=== PATIENT | male | born 1960 | race Caucasian/White ===

== ENCOUNTER 2016-09-05 11:08 | Emergency (ER) | payer BC ==
[2016-09-05 11:29] VITALS: BP 172/102
[2016-09-05] MEDS ORDERED: Sodium Chloride 0.9% 1,000 ML IV ONE (11:43)
[2016-09-05] MEDS ORDERED: Metoclopramide 10 MG/2 ML SDV IVPUSH ONE (11:43)
[2016-09-05] MEDS ORDERED: HYDROmorphone 1 MG/ML Syringe IVPUSH ONE (11:44)
--- NOTE | 2016-09-05 11:46 | EDM.PDOC ---
ED HPI GI/ABDOMINAL - General Chief Complaint: Abdominal Pain Stated Complaint: SEVERE STOMACH PAIN Time Seen by Provider: 09/05/16 11:46 Source of Information: Reports: Patient History Limitations: Reports: No limitations - History of Present Illness INITIAL COMMENTS - FREE TEXT/NARRATIVE: 55-year-old male presents the ED with diffuse central abdominal pain. Reports that it's constant without colicky component does not radiate through to his back. He awoke this pain 0500 hours this morning and it has continued and in fact is worse now than it was upon its origin. He associated nausea but has not vomited. He did have a normal bowel movement this morning without blood. Doesn' t believe that he is passing any flatus since that time. He's had no previous abdominal surgery. States his abdomen feels mildly bloated. Pain is rated as 9/ 10. He does not drink alcohol.. takes no medications at this time. Symptom Onset Date: 09/05/16 Symptom Onset Time: 05:00 Timing/Duration: Reports: Hour(s):, Sudden onset Location: periumbilical Quality: Reports: ache, cramping, fullness Improves with: Denies: defecating (Deep aching pain) Worsens with: Denies: defecating Context: Denies: sick contact, bad/questionable food, out of country travel, recent surgery, recent trauma, lifting, activity/exercise, other Associated Symptoms: Reports: denies other symptoms, loss of appetite, malaise, nausea/vomiting. Denies: back pain, testicular pain, groin pain, shoulder pain , constipation, diarrhea, bloody stools, fever/chills, other (Nausea but not able to vomit.) Treatments CONTRACT NEGOTIATOR: Reports: Other (see below) (No) - Related Data Allergies/ADRs: Allergies Allergy/AdvReac Type Severity Reaction Status Date / Time No Known Allergies Allergy Verified 09/05/16 11:24 Past Medical History - Past Surgical History Musculoskeletal Surgical History: Reports: Other (see below) Other Musculoskeletal Surgeries/Procedures:: low back surgery Social & Family History - Tobacco Use Smoking Status *Q: Never Smoker - Caffeine Use Caffeine Use: Reports: Coffee - Recreational Drug Use Recreational Drug Use: No - Living Situation & Occupation Living situation: Reports: 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 Denies: fever, chills HEENT: Reports: No symptoms Respiratory: Reports: No Symptoms Cardiovascular: Reports: No symptoms Endocrine: Reports: no symptoms GI/Abdominal: Reports: Abdominal pain, Anorexia (See history of present illness) , Nausea. Denies: Diarrhea, Flatus, Vomiting : Reports: no symptoms (Not passing flatus) Musculoskeletal: Reports: back pain (Mild chronic low back pain much better since discectomy was performed within the last year.) Skin: Reports: no symptoms Neurological: Reports: No Symptoms Psychiatric: Reports: No symptoms Hematologic/Lymphatic: Reports: no symptoms Immunologic: Reports: no symptoms ED EXAM, GI/ABD - Physical Exam Exam: See Below Exam Limited By: Other General Appearance: WD/WN, moderate distress Eyes: bilateral: normal appearance (No jaundice) Throat/Mouth: Normal inspection, Normal oropharynx, Other (Tongue is mildly dry and coated.) Head: atraumatic, normocephalic Neck: normal inspection, supple, non-tender, full range of motion Respiratory/Chest: no respiratory distress, lungs clear, normal breath sounds ( Mild tachypnea), no accessory muscle use, respiratory distress Cardiovascular: normal peripheral pulses, regular rate, rhythm, no edema, no gallop, no murmur, no rub GI/Abdominal: no organomegaly, hypoactive bowel sounds, guarding, other (No signs of peritonitis.). No: tympanic bowel sounds, rebound, rigidity (Mostly central abdomen), hepatomegaly (Male) Exam: No hernia, Normal inspection, Other Back Exam: normal inspection (No surgical scars), full range of motion. No: CVA tenderness (L), CVA tenderness (R) Extremities: normal inspection, normal range of motion, non-tender, no pedal edema, normal capillary refill Neurological: alert, oriented, CN II-XII intact, normal cognition, normal gait Psychiatric: normal affect, normal mood Skin Exam: Warm, Dry, Intact, Normal color, Pallor (Slightly pallid) EKG INTERPRETATION Rate (beats/min): 74 Course - Vital Signs Last Recorded V/S: Last Vital Signs Temp 36.1 C 09/05/16 16:28 Pulse 80 09/05/16 11:24 Resp 20 09/05/16 11:24 BP 172/102 H 09/05/16 11:24 Pulse Ox 100 09/05/16 11:24 - Orders/Labs/Meds Orders: Active Orders 24 hr Category Date Time Status Abdomen Ltd [US] Stat Exams 09/05/16 15:26 Taken Labs: Laboratory Tests 09/05/16 09/05/16 09/05/16 Range/Units 11:30 11:30 11:30 WBC 11.71 H (4.23-9.07) K/mm3 RBC 5.73 (4.63-6.08) M/mm3 Hgb 16.1 (13.7-17.5) gm/L Hct 46.0 (40.1-51.0) % MCV 80.3 (79.0-92.2) fl MCH 28.1 (25.7-32.2) pg MCHC 35.0 (32.2-35.5) g/dl RDW Std Deviation 37.4 (35.1-43.9) fL Plt Count 219 (163-337) K/mm3 MPV 10.9 (9.4-12.3) fl Neutrophils % (Manual) 84 H (40-60) % Band Neutrophils % 3 (0-10) % Lymphocytes % (Manual) 12 L (20-40) % Atypical Lymphs % 0 % Monocytes % (Manual) 1 L (2-10) % Eosinophils % (Manual) 0 L (0.8-7.0) % Basophils % (Manual) 0 L (0.2-1.2) Platelet Estimate Adequate RBC Morph Comment Normal D-Dimer, Quantitative 0.31 (0.19-0.59) mg/L Sodium 140 (136-145) mEq/L Potassium 4.2 (3.5-5.1) mEq/L Chloride 103 (98-107) mEq/L Carbon Dioxide 27 (21-32) mEq/L Anion Gap 14.2 (5-15) BUN 16 (7-18) mg/dL Creatinine 1.2 (0.7-1.3) mg/dL Est Cr Clr Drug Dosing 80.87 mL/min Estimated GFR (MDRD) > 60 (>60) mL/min BUN/Creatinine Ratio 13.3 L (14-18) Glucose 138 H (74-106) mg/dL Calcium 9.1 (8.5-10.1) mg/dL Total Bilirubin 0.5 (0.2-1.0) mg/dL AST 28 (15-37) U/L ALT 56 (16-63) U/L Alkaline Phosphatase 93 (46-116) U/L C-Reactive Protein 0.3 (<1.0) mg/dL Total Protein 7.9 (6.4-8.2) g/dl Albumin 4.1 (3.4-5.0) g/dl Globulin 3.8 gm/dL Albumin/Globulin Ratio 1.1 (1-2) Lipase 151 (73-393) U/L Urine Color (Yellow) Urine Appearance (Clear) Urine pH (5.0-8.0) Ur Specific [place] (1.005-1.030) Urine Protein (Negative) Urine Glucose (UA) (Negative) Urine Ketones (Negative) Urine Occult Blood (Negative) Urine Nitrite (Negative) Urine Bilirubin (Negative) Urine Urobilinogen (0.2-1.0) Ur Leukocyte Esterase (Negative) Urine RBC (0-5) /hpf Urine WBC (0-5) /hpf Ur Epithelial Cells Urine Bacteria (FEW) /hpf Urine Mucus (FEW) /hpf // Range/Units 14:20 WBC (4.23-9.07) K/mm3 RBC (4.63-6.08) M/mm3 Hgb (13.7-17.5) gm/L Hct (40.1-51.0) % MCV (79.0-92.2) fl MCH (25.7-32.2) pg MCHC (32.2-35.5) g/dl RDW Std Deviation (35.1-43.9) fL Plt Count (163-337) K/mm3 MPV (9.4-12.3) fl Neutrophils % (Manual) (40-60) % Band Neutrophils % (0-10) % Lymphocytes % (Manual) (20-40) % Atypical Lymphs % % Monocytes % (Manual) (2-10) % Eosinophils % (Manual) (0.8-7.0) % Basophils % (Manual) (0.2-1.2) Platelet Estimate RBC Morph Comment D-Dimer, Quantitative (0.19-0.59) mg/L Sodium (136-145) mEq/L Potassium (3.5-5.1) mEq/L Chloride (98-107) mEq/L Carbon Dioxide (21-32) mEq/L Anion Gap (5-15) BUN (7-18) mg/dL Creatinine (0.7-1.3) mg/dL Est Cr Clr Drug Dosing mL/min Estimated GFR (MDRD) (>60) mL/min BUN/Creatinine Ratio (14-18) Glucose (74-106) mg/dL Calcium (8.5-10.1) mg/dL Total Bilirubin (0.2-1.0) mg/dL AST (15-37) U/L ALT (16-63) U/L Alkaline Phosphatase (46-116) U/L C-Reactive Protein (<1.0) mg/dL Total Protein (6.4-8.2) g/dl Albumin (3.4-5.0) g/dl Globulin gm/dL Albumin/Globulin Ratio (1-2) Lipase (73-393) U/L Urine Color Yellow (Yellow) Urine Appearance Clear (Clear) Urine pH 5.5 (5.0-8.0) Ur Specific [place] > or = 1.030 (1.005-1.030) Urine Protein Negative (Negative) Urine Glucose (UA) Negative (Negative) Urine Ketones Negative (Negative) Urine Occult Blood Negative (Negative) Urine Nitrite Negative (Negative) Urine Bilirubin Negative (Negative) Urine Urobilinogen 0.2 (0.2-1.0) Ur Leukocyte Esterase Negative (Negative) Urine RBC 0-5 (0-5) /hpf Urine WBC 0-5 (0-5) /hpf Ur Epithelial Cells Not Reportable Urine Bacteria Few (FEW) /hpf Urine Mucus Moderate H (FEW) /hpf Meds: Medications Discontinued Medications Generic Name Dose Route Start Last Admin Trade Name Freq PRN Reason Stop Dose Admin Diatrizoate Meglum/Diatrizoate Sod 120 ml 09/05/16 13:39 09/05/16 14:32 Gastrografin 37% PO 09/05/16 13:40 90 ml ONETIME ONE Administration Hydromorphone HCl 1 mg 09/05/16 11:44 09/05/16 11:59 Dilaudid IVPUSH 09/05/16 11:45 1 mg ONETIME ONE Administration Hydromorphone HCl 0.5 mg 09/05/16 12:53 09/05/16 13:18 Dilaudid IVPUSH 09/05/16 12:54 0.5 mg ONETIME ONE Administration Sodium Chloride 1,000 mls @ 999 mls/hr 09/05/16 11:43 09/05/16 12:03 Normal Saline IV 09/05/16 12:43 999 mls/hr ONETIME ONE Administration Iopamidol 150 ml 09/05/16 13:39 09/05/16 14:32 Isovue-300 (61%) IVPUSH 09/05/16 13:40 125 ml ONETIME ONE Administration Magnesium Citrate 210 ml 09/05/16 16:22 Citrate Of Magnesia PO 09/05/16 16:23 ONETIME ONE Metoclopramide HCl 10 mg 09/05/16 11:43 09/05/16 11:57 Reglan IVPUSH 09/05/16 11:44 10 mg ONETIME ONE Administration Sodium Chloride 10 ml 09/05/16 13:39 09/05/16 14:32 Saline Flush FLUSH 09/05/16 13:40 10 ml ONETIME ONE Administration - Radiology Interpretation Free Text/Narrative:: 55-year-old male presents the ED with diffuse central periumbilical abdominal pain since 0500 hours this morning. Pain is constant without colicky component. It does not radiate through to his back. Associated nausea without ability to vomit. He's not been able to eat or drink today. Did have a normal bowel movement this morning without blood. Is not passing flatus per his history. Examination reveals diffuse mid abdominal pain 2 outpatient without rebound. Mild guarding periumbilically. No umbilical hernia or inguinal hernias identified. No previous abdominal surgery. Plan normal saline at open. Given Dilaudid 1 mg IV and Reglan 10 mg IV for pain relief. Routine labs including lipase ordered. View of the abdomen to be done. Urinalysis when one becomes available. - Re-Assessments/Exams Free Text/Narrative Re-Assessment/Exam: 09/05/16 12:31 KUB reveals a lot of increased stool throughout the right hemicolon. There a few gas pockets scattered throughout the small bowel in the right lower quadrant as well. No sign of bowel obstruction. The left hemicolon itself appears to be empty. 09/05/16 13:00 patient states his pain is a 3-4/10. Labs reveal a slightly elevated white count of 11.71 with left shift of 84% neutrophils and 3% band cells. Hemoglobin is 16.1 platelets 219,000. Chemistry shows a sodium of 140 potassium of 4.2 Toradol 3 bicarbonate is 27. Glucose 138 lipase normal at 151. Anion gap normal 14.2. Therefore I will proceed with CT of the abdomen and pelvis with oral and IV contrast as his pain and clinical findings suggest something sinister in the abdomen. Will give him Dilaudid 0.5 mg IV for further pain relief. 09/05/16 13:44 patient reports the pain is down to 1/10. He is taking oral contrast at this time with no problem. Urinalysis proved to be normal. D-dimer was also normal at 0.31. 09/05/16 14:49 CT scan of the abdomen and pelvis has been completed. The patient is a very small hiatal hernia. Liver and spleen appear normal. Stomach is filled with contrast and air. Gallbladder shows a large 2.5 cm or greater filling defect which is ill-defined in the mid gallbladder. There is a small lesion in the superior part of the gallbladder that is surrounded by air and a maribel of air at the top of the gallbladder fundus. Kidneys and ureters are normal. Pancreas appears normal. Bladder appears normal. The colon has a large amount of stool throughout the right hemicolon no sign of diverticulitis evident. Appendix is well-visualized and is normal. Therefore no obvious etiology for his abdominal pain has been identified on CT. I will await the radiologist's opinion. 09/05/16 15:30: Radiologist agrees with the finding of sludge ball and a gallstone. There is some question of some haziness medial aspect of the gallbladder suspicious for cholecystitis. I suspect this is unlikely as his pain originally was more periumbilical compatible with small bowel colic. White count however is mildly elevated at 11.7. Was a left shift. CRP was less than 0.3. On reexamination now he's tenderness in the epigastrium but I cannot define a definitive pain in the right upper quadrant positive Dickerson sign. He' ll have an ultrasound of his gallbladder carried out 09/05/16 16:21 ultrasound of the gallbladder is been completed. Confirms stones in the gallbladder. Gallbladder wall is normal. I see no evidence of any pericholecystic fluid to suggest acute inflammatory response. Plan I'm going to give the patient 7 ounces of Citroma by mouth to provide bowel cleanse. He'll return if his abdominal pain is not markedly improved after bowel cleanse. Departure - Departure Time of Disposition: 16:37 Disposition: Home, Self-Care 01 Condition: fair Clinical Impression: Abdominal pain Qualifiers: Abdominal location: periumbilical Qualified Code(s): R10.33 - Periumbilical pain Constipation Qualifiers: Constipation type: slow transit constipation Qualified Code(s): K59.01 - Slow transit constipation Referrals: PCP,None [Primary Care Provider] - Forms: ED Department Discharge Additional Instructions: Evaluation in the emergency department today in regards to development of severe mid abdominal pain about 0500 hours this morning. Pain persisted throughout the morning which brought to the emergency room. Lab work revealed a mildly elevated white blood cell count which which likely secondary to her pain response. It revealed no evidence of infection of the gallbladder or pancreas. Urinalysis also turned out to be normal. X-ray of the abdomen does show increased stool throughout the right hemicolon. Because the pain was so severe CT of the abdomen was also performed. This demonstrated a few gallstones increased stool throughout the right hemicolon but no other abnormalities was identified. An ultrasound of the gallbladder was performed and it does not show any active infection. Gallbladder wall is not thickened. There is no fluid surrounding the gallbladder to suggest acute infection. There are a few gallstones evident within the gallbladder and some sludge. The lab tests revealed that there was no sign of biliary tree obstruction. Therefore my suggestion is when she gets home is to drink 7 ounces of magnesium citrate or Citroma. Access was about 5 ounces of juice any kind is fine. Take orally once. This will usually start work in one to 3 hours and her bowels were move 3 or 4 times alternating in some degree of diarrhea. This should relieve your abdominal pain completely. If abdominal pain fails to improve or worsens over the next 12 hours then would need to return to the emergency room. - My Orders Last 24 Hours: My Active Orders 09/05/16 15:26 Abdomen Ltd [US] Stat - Assessment/Plan Last 24 Hours: My Active Orders 09/05/16 15:26 Abdomen Seadev-FermenSys [US] Stat
[2016-09-05] MEDS ORDERED: HYDROmorphone 0.5 MG/0.5 ML Syringe IVPUSH ONE (12:53)
[2016-09-05] MEDS ORDERED: Iopamidol 612 MG/ML 150 ML Bottle IVPUSH ONE (13:39)
[2016-09-05] MEDS ORDERED: Diatrizoate Meglumine/Diatrizoate Sodium 37% 120 ML Bottle PO ONE (13:39)
[2016-09-05] MEDS ORDERED: Sodium Chloride 0.9% 10 ML Syringe FLUSH ONE (13:39)
--- NOTE | 2016-09-05 15:08 | CR ---
Abdomen: Supine view of the abdomen was obtained. Comparison: No previous study. Bowel gas pattern appears normal. Slight degenerative spurring is seen throughout the spine. Several calcifications noted within the right pelvis are most likely due to phleboliths. Impression: 1. Incidental findings. Diagnostic code #2
--- NOTE | 2016-09-05 15:08 | CT ---
CT abdomen and pelvis Technique: Multiple axial sections were obtained from above the dome of the diaphragm inferiorly through the pubic symphysis. Intravenous and oral contrast was utilized. Delayed images were also obtained through the bladder. Comparison: No previous abdominal CT. Findings: Visualized lung bases shows nothing acute. Liver shows no focal parenchymal abnormality. Spleen appears within normal limits. Adrenal glands show no nodule. Pancreas is within normal limits. Increased density is seen within the gallbladder which is felt compatible with gallstones. Possible sludge is noted within the gallbladder. Haziness noted around the gallbladder wall and difficult to exclude slight inflammatory change. No biliary duct dilatation is seen. Aorta shows no aneurysmal dilatation. No retroperitoneal adenopathy is seen. Kidneys show symmetric contrast enhancement. Slightly prominent collecting system is noted within the left kidney believed to represent a mild chronic UPJ obstruction. Appendix is seen which appears normal. No pelvic mass or adenopathy is identified. No free fluid is seen. No bowel dilatation is noted. Delayed images shows contrast within the distal ureters and within the bladder. Bone window settings were reviewed which shows scattered degenerative change throughout the spine. Impression: 1. Increased density within the gallbladder compatible with gallstones and possible sludge. Haziness around the gallbladder wall is seen and difficult to exclude inflammatory change. Gallbladder ultrasound recommended to further evaluate. 2. Other incidental findings as noted above. Diagnostic code #3
[2016-09-05] MEDS ORDERED: Magnesium Citrate Solution 296 ML Bottle PO ONE (16:22)
--- NOTE | 2016-09-05 16:38 | US ---
Limited abdominal ultrasound: Multiple real-time images of the upper right abdomen were obtained. Comparison: Previous CT abdomen and pelvis exam performed earlier on the same day. Findings: Gallstones and sludge are seen. Gallbladder wall shows some areas of thickening. Minimal pericholecystic edema is seen. No biliary duct dilatation is seen. Right kidney shows no hydronephrosis and has a length of 13.8 cm. Pancreas poorly is seen due to bowel gas. Inferior vena cava is patent. Impression: 1. Gallstones and sludge within the gallbladder. Areas of gallbladder wall thickening are seen with very minimal pericholecystic fluid. Findings could represent early acute cholecystitis if this correlates with the patient's symptoms. If any clinical questions remain, biliary HIDA scan could then be obtained. 2. Other incidental findings as noted above. Diagnostic code #3
== END 2016-09-05 16:45 | disposition home or self-care (01) ==
LOC: JD.ED 11:08
DX: R10.33 Periumbilical pain (principal); K59.00 Constipation, unspecified; K80.80 Other cholelithiasis without obstruction
CPT/HCPCS: 36415; 74000; 74177; 76705; 80053; 81001; 83690; 85025; 85379; 86140; 96361; 96374; 96375; 96376; 99285; J1170; J2765; J7040; J7050; Q9963; Q9967

== ENCOUNTER 2017-12-25 08:08 | Emergency (ER) | payer OTHER ==
[2017-12-25 08:43] VITALS: BP 154/103
--- NOTE | 2017-12-25 11:11 | EDM.PDOC ---
ED HPI GENERAL MEDICAL PROBLEM - General Chief Complaint: Chest Pain Stated Complaint: RIB PAIN DUE TO INJURY Time Seen by Provider: 12/25/17 08:38 Source of Information: Reports: Patient, RN Notes Reviewed - History of Present Illness INITIAL COMMENTS - FREE TEXT/NARRATIVE: 57-year-old male comes in with right lateral chest discomfort status post fall again some type of metal valve apparatus about 5 days ago. He has been taking tramadol especially at bedtime to help him sleep. He has had increased pain with movement and breathing but did not initially feel the need for medical evaluation. However the last day or 2 he is having trouble with voiding hesitancy and delayed. He states it is hard to get a urine stream going and then more prolonged voiding than usual to empty his bladder. Therefore he is worried about some type of bladder or kidney injury. He has no dysuria, has not seen any hematuria. Elbow pain nausea or vomiting although at times he does feel somewhat bloated. Right Chest Pain Score (Numeric/FACES): 8 - Related Data Allergies Allergy/AdvReac Type Severity Reaction Status Date / Time No Known Allergies Allergy Verified 09/05/16 11:24 Home Meds: Home Meds traMADol [Ultram] 50 mg PO Q6H PRN #30 tab 12/25/17 [Rx] Past Medical History - Past Surgical History Musculoskeletal Surgical History: Reports: Other (See Below) Other Musculoskeletal Surgeries/Procedures:: back surgery Social & Family History - Tobacco Use Smoking Status *Q: Never Smoker - Caffeine Use Caffeine Use: Reports: Coffee - Recreational Drug Use Recreational Drug Use: No - Living Situation & Occupation Living situation: Reports: Occupation: Employed ED ROS GENERAL - Review of Systems Review Of Systems: See Below Constitutional: Denies: Fever, Chills, Diaphoresis HEENT: Reports: No Symptoms Respiratory: Reports: Pleuritic Chest Pain. Denies: Shortness of Breath Cardiovascular: Reports: Chest Pain (Right lateral chest) GI/Abdominal: Denies: Abdominal Pain, Nausea, Vomiting : Reports: Other (Hesitancy and prolonged avoiding) Musculoskeletal: Denies: Back Pain, Leg Pain Skin: Reports: No Symptoms Neurological: Reports: No Symptoms ED EXAM, GENERAL - Physical Exam Exam: See Below General Appearance: Alert, Mild Distress Eye Exam: Bilateral Eye: PERRL Head: Atraumatic Neck: Supple Respiratory/Chest: No Respiratory Distress, Lungs Clear, Normal Breath Sounds, Other (There is tenderness of the right lateral chest wall, there is bruising of the right lateral chest wall). No: Rhonchi, Wheezing Cardiovascular: Regular Rate, Rhythm GI/Abdominal: Soft, Non-Tender Back Exam: Normal Inspection, Full Range of Motion. No: CVA Tenderness (L), CVA Tenderness (R) Extremities: Normal Inspection, Normal Range of Motion Neurological: Alert, Oriented, No Motor/Sensory Deficits Skin Exam: Warm, Dry, Normal Color Course - Vital Signs Last Recorded V/S: Last Vital Signs Temp 98.4 F 12/25/17 08:37 Pulse 73 12/25/17 08:37 Resp 18 12/25/17 08:37 BP 154/103 H 12/25/17 08:37 Pulse Ox 92 L 12/25/17 08:37 - Orders/Labs/Meds Orders: Active Orders 24 hr Category Date Time Status Ribs 2V w Chest Rt [CR] Stat Exams 12/25/17 08:49 Taken Labs: Laboratory Tests 12/25/17 12/25/17 Range/Units 08:56 09:00 WBC 7.75 (4.23-9.07) K/mm3 RBC 5.51 (4.63-6.08) M/mm3 Hgb 15.8 (13.7-17.5) gm/L Hct 45.6 (40.1-51.0) % MCV 82.8 (79.0-92.2) fl MCH 28.7 (25.7-32.2) pg MCHC 34.6 (32.2-35.5) g/dl RDW Std Deviation 38.3 (35.1-43.9) fL Plt Count 192 (163-337) K/mm3 MPV 10.7 (9.4-12.3) fl Neut % (Auto) 69.6 H (34.0-67.9) % Lymph % (Auto) 16.8 L (21.8-53.1) % [place] % (Auto) 9.9 (5.3-12.2) % Eos % (Auto) 3.4 (0.8-7.0) Baso % (Auto) 0.3 (0.1-1.2) % Neut # (Auto) 5.40 H (1.78-5.38) K/mm3 Lymph # (Auto) 1.30 L (1.32-3.57) K/mm3 [place] # (Auto) 0.77 (0.30-0.82) K/mm3 Eos # (Auto) 0.26 (0.04-0.54) K/mm3 Baso # (Auto) 0.02 (0.01-0.08) K/mm3 Urine Color Yellow (Yellow) Urine Appearance Clear (Clear) Urine pH 6.5 (5.0-8.0) Ur Specific [place] 1.020 (1.005-1.030) Urine Protein Negative (Negative) Urine Glucose (UA) Negative (Negative) Urine Ketones Negative (Negative) Urine Occult Blood Negative (Negative) Urine Nitrite Negative (Negative) Urine Bilirubin Negative (Negative) Urine Urobilinogen 0.2 (0.2-1.0) Ur Leukocyte Esterase Negative (Negative) Urine RBC Not seen (0-5) /hpf Urine WBC 0-5 (0-5) /hpf Ur Epithelial Cells Not seen (0-5) /hpf Urine Bacteria Few (FEW) /hpf Urine Mucus Not seen (FEW) /hpf - Re-Assessments/Exams Free Text/Narrative Re-Assessment/Exam: 12/25/17 13:31 X-rays of the ribs do show fractures of at least 3 right lateral ribs, nondisplaced. Chest x-ray does show very mild atelectasis both bases. Bladder scan showed only 40 mils of urine in the bladder after he did void for us. Urinalysis normal. Discharge instructions as documented. Departure - Departure Time of Disposition: 11:08 Disposition: Home, Self-Care 01 Condition: Fair Clinical Impression: Fracture of rib Qualifiers: Encounter type: initial encounter Rib fracture type: multiple ribs Fracture type: closed Laterality: right Qualified Code(s): S22.41XA - Multiple fractures of ribs, right side, initial encounter for closed fracture Prescriptions: traMADol [Ultram] 50 mg PO Q6H PRN #30 tab PRN Reason: Pain Instructions: Rib Fracture Referrals: PCP,None [Primary Care Provider] - Forms: ED Department Discharge Additional Instructions: Rest, increase activity slowly as tolerated. Ibuprofen 600 mg 3 times daily with food, you may take Tylenol in between doses of ibuprofen for extra pain relief. You may take tramadol one half or one full tab every 6-8 hours for further pain relief as needed. It is expected that your rib fractures will take about 3-4 weeks to heal. Avoid further injury. Follow-up clinic as needed. Return to ED as needed if symptoms worsening in any way. - My Orders Last 24 Hours: My Active Orders 12/25/17 08:49 Ribs 2V w Chest Rt [CR] Stat - Assessment/Plan Last 24 Hours: My Active Orders 12/25/17 08:49 Ribs 2V w Chest Rt [CR] Stat
--- NOTE | 2017-12-25 14:16 | CR ---
Chest and right ribs: Frontal view of the chest was obtained as well as three views of the right ribs. Comparison: No prior rib or chest x-ray. Linear densities are seen within both lung bases most likely due to atelectasis. Blunting of the right lateral costophrenic angle is seen most likely representing pleural effusion. Upper lungs are clear. Heart size and mediastinum are normal. Fracture is seen within the right approximate 8th through 10th right ribs. Small amount of subcutaneous air is seen within the right chest wall. Impression: 1. Right-sided rib fractures with small amount of subcutaneous air within the right chest wall. 2. Bibasilar atelectasis with small right sided pleural effusion. 3. No findings of pneumothorax. Diagnostic code #3
== END 2017-12-25 11:20 | disposition home or self-care (01) ==
LOC: JD.ED 08:08
DX: S22.41XA Multiple fractures of ribs, right side, initial encounter for closed fracture (principal); W01.0XXA Fall on same level from slipping, tripping and stumbling without subsequent striking against object, initial encounter
CPT/HCPCS: 36415; 71101-26-RT; 71101-RT; 81001; 85025; 99283; 99284

== ENCOUNTER 2023-02-22 06:56 | Day surgery (SDC) | payer BC ==
[~2023-02-22 06:56] MED LIST: Acetaminophen 325 MG Tab PO ONE; Bupivacaine 0.25% 10 ML SDV ONE; Lactated Ringers 1,000 ML IV SCH; Morphine 8 MG, EPINEPHrine 0.3 MG, Cefuroxime 750 MG, Ketorolac 30 MG, Sodium Chloride ... PRN; Pregabalin 25 MG Cap PO ONE; Sodium Chloride 0.9% 10 ML Syringe FLUSH PRN; Sodium Chloride 0.9% 10 ML Syringe FLUSH SCH; Tranexamic Acid 1,000 MG/10 ML Vial ONE; Triamcinolone Acetonide 40 MG/ML 1 ML SDV ONE; Vancomycin 1 GM SDV ONE; oxyCODONE ER 10 MG TAB.ER PO ONE
[2023-02-22] MEDS ORDERED: Lidocaine 1% 4 ML ONE (07:50)
[2023-02-22] MEDS ORDERED: Lidocaine 1% PF 2 ML SDV ONE (07:50)
[2023-02-22] MEDS ORDERED: Propofol 200 MG/20 ML SDV ONE ×2 (07:50→08:55)
[2023-02-22] MEDS ORDERED: fentaNYL 100 MCG/2 ML SDV ONE (07:50)
[2023-02-22 07:54] LABS: INR 1.12; PROTHROMBIN TIME 11.9 SECONDS (9.7-12.0)
[2023-02-22 07:56] LABS: PTT,PARTIAL THROMBOPLSTIN TIME 29.9 SECONDS (21.7-31.4)
[2023-02-22] MEDS ORDERED: ceFAZolin 2 GM Vial ONE (08:17)
[2023-02-22] MEDS ORDERED: fentaNYL 100 MCG/2 ML SDV IVPUSH PRN (08:59)
[2023-02-22] MEDS ORDERED: Naloxone 0.4 MG/ML SDV IVPUSH PRN (08:59)
[2023-02-22] MEDS ORDERED: Ondansetron 4 MG/2 ML SDV IVPUSH PRN (08:59)
[2023-02-22] MEDS ORDERED: HYDROmorphone 0.5 MG/0.5 ML Syringe IVPUSH PRN (08:59)
[2023-02-22] MEDS ORDERED: Dexamethasone 10 MG/ML SDV ONE (10:01)
[2023-02-22] MEDS ORDERED: Bupivacaine 0.5% 30 ML SDV ONE (10:01)
[2023-02-22] MEDS ORDERED: Acetaminophen/HYDROcodone 325-5 MG Tab PO PRN (11:19)
[2023-02-22 15:24] VITALS: BP 151/97; PULSE 68
== END 2023-02-22 14:09 | disposition home or self-care (01) ==
LOC: JD.SDS 06:56
PROVIDERS: ATTEND Orthopaedic Surgery
DX: M17.12 Unilateral primary osteoarthritis, left knee (principal); M54.9 Dorsalgia, unspecified; I10 Essential (primary) hypertension; G89.29 Other chronic pain; G47.30 Sleep apnea, unspecified; Z79.899 Other long term (current) drug therapy; Z79.01 Long term (current) use of anticoagulants; Z87.891 Personal history of nicotine dependence
CPT/HCPCS: 0055T; 27447; 36415; 73560; 85610; 85730; 97110; 97116; 97161; A9270; C1713; C1776; J0171; J0690; J0697; J1100; J1885; J2270; J2704; J3010; J3301; J3370; J3490; J7030; J7120; 01402

== ENCOUNTER 2024-07-04 06:00 | Day surgery (SDC) | payer BC ==
[~2024-07-04 06:00] MED LIST changes: -Acetaminophen 325 MG Tab PO ONE; -Bupivacaine 0.25% 10 ML SDV ONE; -Lactated Ringers 1,000 ML IV SCH; -Morphine 8 MG, EPINEPHrine 0.3 MG, Cefuroxime 750 MG, Ketorolac 30 MG, Sodium Chloride ... PRN; -Pregabalin 25 MG Cap PO ONE; -Tranexamic Acid 1,000 MG/10 ML Vial ONE; -Triamcinolone Acetonide 40 MG/ML 1 ML SDV ONE; -Vancomycin 1 GM SDV ONE; -oxyCODONE ER 10 MG TAB.ER PO ONE
[2024-07-04] MEDS ORDERED: fentaNYL 100 MCG/2 ML SDV ONE (06:20)
[2024-07-04] MEDS ORDERED: ceFAZolin 2 GM Vial ONE (06:20)
[2024-07-04] MEDS ORDERED: Propofol 200 MG/20 ML SDV ONE ×2 (06:20→07:58)
[2024-07-04] MEDS ORDERED: Ondansetron 4 MG/2 ML SDV ONE (06:23)
[2024-07-04] MEDS ORDERED: Midazolam 1 MG/ML 2 ML SDV ONE (06:24)
[2024-07-04] MEDS: Lactated Ringers 1,000 ML IV SCH (06:35)
[2024-07-04] MEDS: oxyCODONE ER 10 MG TAB.ER PO ONE (06:39)
[2024-07-04] MEDS: Pregabalin 25 MG Cap PO ONE (06:39)
[2024-07-04] MEDS: Acetaminophen 325 MG Tab PO ONE (06:39)
[2024-07-04] MEDS ORDERED: fentaNYL 100 MCG/2 ML SDV IVPUSH PRN (06:41)
[2024-07-04] MEDS ORDERED: Ondansetron 4 MG/2 ML SDV IVPUSH PRN (06:41)
[2024-07-04] MEDS ORDERED: HYDROmorphone 0.5 MG/0.5 ML Syringe IVPUSH PRN (06:41)
[2024-07-04 06:51] LABS: INR 1.2; PROTHROMBIN TIME 12.6 SECONDS (9.7-12.0)
[2024-07-04 06:52] LABS: PTT,PARTIAL THROMBOPLSTIN TIME 27.5 SECONDS (21.7-31.4)
[2024-07-04] MEDS: Tranexamic Acid 1,000 MG/10 ML Vial ONE (08:14)
[2024-07-04] MEDS: VANCOmycin 1 GM SDV ONE (08:14)
[2024-07-04] MEDS: Morphine 8 MG, EPINEPHrine 0.3 MG, Cefuroxime 750 MG, Ketorolac 30 MG, Sodium Chloride ... PRN (08:14)
[2024-07-04] MEDS ORDERED: Ketorolac 30 MG/ML SDV ONE (08:15)
[2024-07-04] MEDS: oxyCODONE 5 MG Tab PO PRN (10:20)
[2024-07-04 10:46] VITALS: PULSE 65
[2024-07-04 11:20] VITALS: BP 127/77
== END 2024-07-04 12:05 | disposition home or self-care (01) ==
LOC: JD.SDS 06:00
PROVIDERS: ATTEND Orthopaedic Surgery
DX: M16.11 Unilateral primary osteoarthritis, right hip (principal); G89.29 Other chronic pain; M54.50 Low back pain, unspecified; Z79.899 Other long term (current) drug therapy; Z79.01 Long term (current) use of anticoagulants; Z87.891 Personal history of nicotine dependence
CPT/HCPCS: 0055T; 27130; 36415; 73501; 85610; 85730; 86850; 86900; 86901; 97116; 97161; A9270; C1713; C1776; J0171; J0690; J0697; J1885; J2250; J2272; J2405; J2704; J3010; J7120; J3490